=== PATIENT | female | born 2000 ===

== ENCOUNTER 2024-07-10 06:36 | Day surgery (SDC) | payer OTHER ==
[2024-07-06 09:59] VITALS: BP 113/75
[2024-07-06 10:15] LABS: URINE APPEARANCE Clear; URINE BILIRRUBIN Negative (NEGATIVE); URINE BLOOD Negative; URINE COLOR Yellow; URINE GLUCOSE Negative (NEGATIVE); URINE KETONE Negative (NEGATIVE); URINE LEUKOCYTE Negative; URINE NITRATE Negative; URINE PROTEIN Negative (NEGATIVE); URINE UROBILINOGEN 0.2 E.U./dl
[2024-07-06 10:19] LABS: URINE BACTERIA 333.7 uL (0.0-1933); URINE EPITHELIAL CELLS 4.7 uL (0.0-38.8); URINE RBC 4.8 uL (0.0-20.8); URINE WBC 2.7 uL (0.0-23.2)
[2024-07-06 10:24] LABS: HEMATOCRIT 36.9 % (36.0-45.00); HEMOGLOBIN 12.7 g/dL (12.0-15.00); MEAN CELL VOLUME 86.6 fL (80.00-100.00); MEAN CORPUSCULAR HEMOGLOBIN 29.7 pg (27.00-32.0); MEAN CORPUSCULAR HGB CONC 34.3 g/dl (32.0-36.0); PLATELET COUNT 347 K/uL (150-450); RED BLOOD COUNT 4.26 M/uL (4.00-6.00); RED CELL DISTRIBUTION WIDTH 13.5 % (11.5-14.5)
[2024-07-06 10:30] LABS: INR 1.04; PARTIAL THROMBOPLASTIN TIME 31.7 SECONDS (22.0-34.0); PROTHROMBIN TIME 11.3 SECONDS (9.0-11.5)
[2024-07-06 10:31] LABS: URINE CAST 0.15 uL (0.0-1.40)
[2024-07-06 10:42] LABS: ALBUMIN 4.2 gm/dL (3.4-5.0); BILIRUBIN TOTAL 0.45 mg/dL (0.3-1.2); CALCIUM 9.7 mg/dL (8.5-10.1); CREATININE SERUM 0.6 mg/dL (0.55-1.02); GFR 121.8; GLOBULINA 4.6 G/DL (2.4-3.5); POTASSIUM 3.79 mEq/L (3.5-5.1); TOTAL PROTEIN 8.8 gm/dL (6.4-8.2)
[~2024-07-10] VITALS: Ht 152.4 cm; Wt 59.0 kg
[2024-07-10] MEDS ORDERED: POVIDONE-IODINE 118 ML BOTT TOP ONE (21:15)
[2024-07-10] MEDS ORDERED: OXYTOCIN 10 UNITS/ML VIAL IV ONE (21:15)
== END 2024-07-11 00:35 | disposition home or self-care (01) ==
LOC: CIR.AMB 06:36
PROVIDERS: ATTEND Specialist
DX: O02.1 Missed abortion (principal)